=== PATIENT | male | born 1975 ===

== ENCOUNTER 2018-04-03 12:50 | Emergency (ER) | payer OTHER ==
[2018-04-03 13:03] VITALS: TEMP 98.8
[2018-04-03] MEDS ORDERED: Lidocaine 1% PF (5ml) Amp INJ ONE (13:11)
[2018-04-03] MEDS ORDERED: Lidocaine 1% (10 ml) Inj INFIL ONE (13:26)
[2018-04-03] MEDS ORDERED: Lidocaine Hydrochloride 5 ML INJ ONE (13:31)
--- NOTE | 2018-04-03 14:08 | C.PDOC ---
History Of Present Illness Patient is a 42 year old male who denies past medical history who presents with complaint of right ear swelling and pain. Patient initially went to [facility] on 03/25/18 for right ear swelling which occurred after mosquito bite. Patient states wound was drained and he was given tetanus shot and possibly an antibiotic shot. Patient states he was not given antibiotics on discharge. Patient reports fluid re-accumulated in wound over past 4-5 days. Patient reports discomfort as a stinging sensation and has only taken Tylenol for pain. Time Seen by Provider: 04/03/18 13:07 Chief Complaint (Nursing): ENT Problem History Per: Patient History/Exam Limitations: no limitations Onset/Duration Of Symptoms: Days Current Symptoms Are (Timing): Worse Location Of Injury: Right: Face (ear) Quality Of Symptoms: Swollen Severity: Moderate Pain Scale Rating Of: 3 Recent travel outside of the [place]: No Past Medical History Vital Signs: Last Vital Signs Temp 98.8 F 04/03/18 12:56 Pulse 73 04/03/18 12:56 Resp 16 04/03/18 12:56 BP 146/76 04/03/18 12:56 Pulse Ox 98 04/03/18 12:56 - Medical History PMH: Asthma Surgical History: Appendectomy Family History: States: No Known Family Hx - Social History Hx Alcohol Use: Yes Hx Substance Use: No - Immunization History Hx Tetanus Toxoid Vaccination: No Hx Influenza Vaccination: No Hx Pneumococcal Vaccination: No Review Of Systems Constitutional: Negative for: Fever, Chills Eyes: Negative for: Pain, Vision Change ENT: Positive for: Ear Pain. Negative for: Ear Discharge Cardiovascular: Negative for: Chest Pain, Palpitations Respiratory: Negative for: Cough, Shortness of Breath Musculoskeletal: Negative for: Neck Pain Skin: Positive for: Other (ear swelling) Neurological: Negative for: Weakness, Numbness Physical Exam - Physical Exam Appears: Non-toxic, No Acute Distress Skin: Warm Head: Atraumatic, Normacephalic, Other (no mastoid tenderness) Eye(s): bilateral: EOMI Ear(s): Right: Other (right ear conchal bowl swollen, fluctuant, no erythema, no purulence, no drainage, mildly tender on palpation) Nose: Normal Oral Mucosa: Moist Tongue: Normal Appearing Neck: Normal, Normal ROM DTR: Ankle (R): 0 Neurological/Psych: Oriented x3 ED Course And Treatment O2 Sat by Pulse Oximetry: 98 - Incision & Drainage Of Abscess Anesthesia: Lidocaine 1% Prep Used: Sterile Water (and chlorhexadine) Procedure: Incised W/Scalpel Blade#: (11, serosanguinous fluid expressed from incision) Medical Decision Making Medical Decision Making: I&D performed of right ear swelling. Serosanguinous fluid expressed from wound. Xeroform gauze placed over wound and ear wrapped with gauze and tape. Disposition Counseled Patient/Family Regarding: Diagnosis, Need For Followup - Disposition Referrals: [facility] [Outside] [facility] [Outside] [facility] [Outside] Disposition: HOME/ ROUTINE Disposition Time: 14:09 Condition: GOOD Additional Instructions: Patient advised to return to ER in 24 hours for dressing change. Patient advised to follow up with PMD within next week. Instructions: Wound Care Forms: [facility] (Montenegrin) - POA Location Of Wound: right ear - Clinical Impression Clinical Impression: Wound, open, ear, external
[2018-04-03 14:12] VITALS: BP 138/72; PULSE 75; RESP 18
[2018-04-03 14:13] VITALS: O2SAT 98
== END 2018-04-03 14:12 | disposition home or self-care (01) ==
LOC: C.ER 12:50
DX: S01.301D Unspecified open wound of right ear, subsequent encounter (principal); X58.XXXD Exposure to other specified factors, subsequent encounter

== ENCOUNTER 2018-04-05 16:39 | Emergency (ER) | payer OTHER ==
[2018-04-05 16:52] VITALS: BMI 34.2
[2018-04-05 16:59] VITALS: RESP 18
[2018-04-05] MEDS ORDERED: Lidocaine 2% Inj (20ml) INFIL STA (17:09)
[2018-04-05] MEDS ORDERED: Lidocaine 2% MPF (5 ml) Inj ONE (17:14)
[2018-04-05] MEDS ORDERED: Oxycodone/Acetaminophen 5/325 mg Tab PO STA (18:15)
--- NOTE | 2018-04-05 18:19 | C.PDOC ---
History Of Present Illness 42 y/o male presents to the ER complaining of right ear pain and swelling. Patient states that he had some type of insect bite on his right ear and he had swelling in his external ear. Patient reports that he went to [facility]. At the time, they drained the ear and did not prescribe antibiotics. He notes that the swelling came back. Then, he was evaluated at [facility] ER 2 days ago. At the time, the ear was drained again and packing was applied. However, the packing came off and he continues to have pain and swelling. Denies having fever, chills, and headache. Time Seen by Provider: 04/05/18 16:59 Chief Complaint (Nursing): ENT Problem History Per: Patient History/Exam Limitations: None Onset/Duration Of Symptoms: Days Current Symptoms Are (Timing): Still Present Severity: Moderate Past Medical History Reviewed: Historical Data, Nursing Documentation, Vital Signs Vital Signs: Last Vital Signs Temp 98.4 F 04/05/18 16:51 Pulse 65 04/05/18 16:51 Resp 18 04/05/18 16:51 BP 138/80 04/05/18 16:51 Pulse Ox 98 04/05/18 16:51 - Medical History PMH: Asthma Surgical History: Appendectomy Family History: States: No Known Family Hx - Social History Hx Alcohol Use: Yes Hx Substance Use: No - Immunization History Hx Tetanus Toxoid Vaccination: No Hx Influenza Vaccination: No Hx Pneumococcal Vaccination: No Review Of Systems Except As Marked, All Systems Reviewed And Found Negative. Constitutional: Negative for: Fever, Chills ENT: Positive for: Ear Pain (right ear pain) Physical Exam - Physical Exam Appears: Non-toxic, No Acute Distress Skin: Normal Color, Warm, Dry Head: Atraumatic, Normacephalic Eye(s): bilateral: Normal Inspection Ear(s): Left: Normal, Right: Other (swelling to external ear with the exception of earlobe, swelling, tenderness,erythema, and fluctuance to external ear ) Nose: Normal Oral Mucosa: Moist Neck: Supple Chest: Symmetrical Neurological/Psych: Oriented x3, Normal Speech ED Course And Treatment O2 Sat by Pulse Oximetry: 98 (RA) Pulse Ox Interpretation: Normal Progress Note: Case discussed with , ENT. I obtained permission from patient to take picture of his ear and send to . advised that I drain his ear and discharge him with prescriptions for abx and steroids. Patient was treated with Keflex PO, Percocet PO, Prednsione PO, and Cipro PO.I drained patient's ear. Patient has been discharged and instructed to follow up with in his office tomorrow. - Incision & Drainage Of Abscess Anesthesia: Lidocaine 2% Prep Used: Betadine Procedure: Incised W/Scalpel Blade#: (11), Irrigated Cavity W/Saline, Probed To Break Up Loculations, Packed W/Gauze, Cultures Obtained And Sent To Lab Disposition - Disposition Referrals: Tyson Wise MD [Staff Provider] - Disposition: HOME/ ROUTINE Disposition Time: 18:17 Condition: STABLE Additional Instructions: Follow up with ENT specialist tomorrow. Return to ED immediately if feel worse. Prescriptions: Ciprofloxacin [Cipro] 1 tab PO BID #20 tab Cephalexin [cephalexin] 500 mg PO Q6 #40 cap Methylprednisolone [Medrol] 4 mg PO DAILY #42 tab oxyCODONE/Acetaminophen [Percocet 5/325 mg Tab] 1 tab PO QID PRN #20 tab PRN Reason: Pain Instructions: Outer Ear Infection Forms: [facility] (Kazakh) - Clinical Impression Clinical Impression: Perichondritis of right ear - PA / MAIL EXAMINER / Resident Statement MD/DO has reviewed & agrees with the documentation as recorded. - Scribe Statement The provider has reviewed the documentation as recorded by the Jaradibyoko Hoffman Provider Attestation All medical record entries made by the Scribe were at my direction and personally dictated by me. I have reviewed the chart and agree that the record accurately reflects my personal performance of the history, physical exam, medical decision making, and the department course for this patient. I have also personally directed, reviewed, and agree with the discharge instructions and disposition.
[2018-04-05] MEDS ORDERED: Oxycodone/Acetaminophen 5/325 mg Tab ONE (18:22)
[2018-04-05 18:44] VITALS: BP 145/94; PULSE 61; TEMP 97.5
[2018-04-05 19:48] VITALS: O2SAT 98
== END 2018-04-05 18:35 | disposition home or self-care (01) ==
LOC: C.ER 16:39
DX: H61.001 Unspecified perichondritis of right external ear (principal)